=== PATIENT | female | born 1995 | race Caucasian/White ===

== ENCOUNTER 2018-08-30 13:13 | Outpatient (CLI) | payer OTHER ==
--- NOTE | 2018-08-30 13:42 | Ultrasound Report ---
Reason: ENCTR FOR TEST, RESULT POSITIVE Procedure Date: 08/30/2018 Accession Number: [id number] / [id number] Procedure: US - OB First Trimester CPT Code: FULL RESULT: EXAM: FIRST TRIMESTER OBSTETRIC ULTRASOUND (Less than 11 weeks) EXAM DATE: 08/30/2018 12:50 PM. CLINICAL HISTORY: Encounter for test, result positive. LMP: 07/04/2018. COMPARISONS: None. TECHNIQUE: Transabdominal and transvaginal ultrasound examination with static image documentation. CLINICAL DATES: EGA 8 weeks 1 day with TARAH 04/10/2019 based on last menstrual period. ASSESSMENT: Gestational Sac: Single intrauterine. Mean gestational sac diameter: 39 mm = 9 weeks 0 days. Embryo: CRL (crown-rump length) 19.5 mm = 8 weeks 2 days. Cardiac activity: 170 beats per minute. Yolk sac: 2.3 mm. Amniotic fluid: Not accurately assessed at this gestational age. Early placenta: Not visible at this gestational age. Other: No perigestational fluid collection demonstrated. MATERNAL STRUCTURES: Uterus: Retroverted. Unremarkable. Cervix: Closed. Right Ovary/Adnexa: The ovary measures 2.8 x 1.8 x 1.6 cm, volume 4.2 cc. Unremarkable. Left Ovary/Adnexa: The ovary measures 3.0 x 2.0 x 2.3 cm, volume 7.2 cc. Contains the corpus luteum. Free Fluid: None. Other: None. IMPRESSION: 1. Single viable intrauterine at EGA 8 weeks 2 days with TARAH 04/09/2019 based on crown-rump length, which is concordant with clinical dates. 2. Assigned dating is TARAH 04/09/2019 based on current ultrasound. RADIA
== END 2018-08-30 13:14 | disposition home or self-care (01) ==
LOC: DI 13:13
PROVIDERS: ATTEND Registered Nurse
DX: Z32.01 Encounter for pregnancy test, result positive (principal)
CPT/HCPCS: 76801; 76817

== ENCOUNTER 2018-10-07 08:09 | Outpatient (CLI) | payer OTHER ==
[2018-10-07 09:23] LABS: BILIRUBIN,URINE NEGATIVE (NEGATIVE); GLUCOSE, URINE (UA) NEGATIVE (NEGATIVE); KETONES,URINE (UA) NEGATIVE (NEGATIVE); LEUKOCYTE ESTERASE, URINE NEGATIVE (NEGATIVE); NITRITE,URINE NEGATIVE (NEGATIVE); OCCULT BLOOD,URINE NEGATIVE (NEGATIVE); PH,URINE 7.5 PH (5.0-7.5); PROTEIN,URINE NEGATIVE (NEGATIVE); UROBILINOGEN,URINE 0.2 (NORMAL) E.U./dL (NORMAL)
[2018-10-07 09:24] LABS: CLARITY,URINE CLEAR (CLEAR)
[2018-10-07 09:30] LABS: BASOPHILS % (AUTO) 0.2 %; EOSINOPHILS # (AUTO) 0.1 10^3/uL (0.0-0.7); EOSINOPHILS % (AUTO) 0.9 %; HGB - HEMOGLOBIN 12.4 g/dL (12.0-16.0); LYMPHOCYTES # (AUTO) 1.6 10^3/uL (1.5-3.5); MEAN CORPUSCULAR HEMOGLOBIN 33.4 pg (27.0-31.0); MEAN CORPUSCULAR VOLUME 95.3 fL (81.0-99.0); MEAN PLATELET VOLUME 8.8 fL (7.9-10.8); MONOCYTES # (AUTO) 0.5 10^3/uL (0.0-1.0); MONOCYTES % (AUTO) 6.7 %; NEUTROPHILS # (AUTO) 4.7 10^3/uL (1.5-6.6); NEUTROPHILS % (AUTO) 69.2 %; PLT - PLATELET COUNT 262 10^3/uL (130-450); RED CELL DISTRIBUTION WIDTH 12.8 % (12.0-15.0); WHITE BLOOD COUNT 6.8 x10^3/uL (4.8-10.8)
[2018-10-07 09:59] LABS: BACTERIA,URINE None Seen /HPF (None Seen); RBC,URINE None Seen /HPF (0-5); SQUAMOUS EPITHELIAL CELL,UR RARE Squamous (<= Few)
[2018-10-08 12:11] LABS: HEPATITIS B SURFACE ANTIGEN NON-REACTIVE (NON-REACTIVE); HEPATITIS C ANTIBODY NON-REACTIVE (NON-REACTIVE)
[2018-10-08 14:21] LABS: HIV AG/AB 4TH GEN NON-REACTIVE (NON-REACTIVE)
== END 2018-10-07 08:10 | disposition home or self-care (01) ==
LOC: LAB 08:09
PROVIDERS: ATTEND Obstetrics & Gynecology
DX: Z36.9 Encounter for antenatal screening, unspecified (principal)
CPT/HCPCS: 36415; 81001; 81599; 85025; 86592; 86762; 86803; 86850; 86900; 86901; 87340; 87389

== ENCOUNTER 2018-12-06 07:25 | Outpatient (CLI) | payer OTHER ==
--- NOTE | 2018-12-06 10:24 | Ultrasound Report ---
Reason: ENCOUNTER FOR SCREENING, UNSPECIFIED Procedure Date: 12/06/2018 Accession Number: [id number] / [id number] Procedure: US - OB Detailed Eval CPT Code: FULL RESULT: EXAM: COMPLETE OBSTETRICAL ULTRASOUND EXAM DATE: 12/06/2018 09:37 AM. CLINICAL HISTORY: anatomic survey. COMPARISON: None. TECHNIQUE: Real-time sonographic evaluation of the fetus performed by the dowel inserting machine operator. Multiple enrollment eligibility representative static images were saved for review. DATING: Established EGA 22 weeks 1 day with TARAH 04/10/2019 based on last menstrual period/obstetric physician. EGA 22 weeks 2 days with TARAH 04/09/2019 based on initial ultrasound. EGA 23 weeks 1 day with TARAH 04/03/2019 based on the current ultrasound. GENERAL EVALUATION Ro . Cardiac activity: 148 bpm. movement: Visualized. Presentation: Cephalic. Placenta: Anterior position. No evidence for previa. Umbilical cord: 3 vessel cord. Central placental cord origin. Amniotic fluid: MARLON 13.2 MVP 4.0 cm. BIOMETRY Bi-Parietal Diameter (BPD): 5.6 cm, 23 weeks 0 days Head Circumference (HC): 20.8 cm, 22 weeks 6 days Abdominal Circumference (AC): 19.5 cm, 24 weeks 1 day Femur Length (FL): 3.9 cm, 22 weeks 4 days Estimated Weight: 592 g, 94th percentile for 22 weeks 1 day. ANATOMY The intracranial structures, profile, face/nose/lips, spine, 4 chamber heart and outflow tracts, stomach, abdominal wall and cord insertion, diaphragm, kidneys, bladder, and extremities were visualized and demonstrate no abnormality. MATERNAL STRUCTURES Uterus: Unremarkable. Cervix: Long and closed. Transabdominal length 4.1 cm. Right ovary/adnexa: Unremarkable. Left ovary/adnexa: Unremarkable. Free fluid: None. IMPRESSION: 1. Ro live intrauterine with gestational age 22 weeks 1 day based on last menstrual period. 2. Estimated weight is within expected limits for assigned dating, top normal. 3. Normal anatomic survey. No anatomic abnormalities are detected at this time. RADIA
== END 2018-12-06 07:26 | disposition home or self-care (01) ==
LOC: DI 07:25
PROVIDERS: ATTEND Obstetrics & Gynecology
DX: Z36.9 Encounter for antenatal screening, unspecified (principal); Z3A.22 22 weeks gestation of pregnancy
CPT/HCPCS: 76811

== ENCOUNTER 2019-01-13 14:31 | Outpatient (CLI) | payer OTHER ==
[2019-01-13 19:53] LABS: BASOPHILS % (AUTO) 0.2 %; EOSINOPHILS # (AUTO) 0.1 10^3/uL (0.0-0.7); EOSINOPHILS % (AUTO) 0.8 %; HGB - HEMOGLOBIN 11.5 g/dL (12.0-16.0); LYMPHOCYTES # (AUTO) 1.6 10^3/uL (1.5-3.5); LYMPHOCYTES % (AUTO) 20.5 %; MEAN CORPUSCULAR HEMOGLOBIN 34.1 pg (27.0-31.0); MEAN CORPUSCULAR HGB CONC 34.3 g/dL (32.0-36.0); MEAN CORPUSCULAR VOLUME 99.4 fL (81.0-99.0); MEAN PLATELET VOLUME 10.2 fL (7.9-10.8); MONOCYTES # (AUTO) 0.5 10^3/uL (0.0-1.0); NEUTROPHILS # (AUTO) 5.7 10^3/uL (1.5-6.6); NEUTROPHILS % (AUTO) 72.5 %; PLT - PLATELET COUNT 250 10^3/uL (130-450); RED BLOOD COUNT 3.37 10^6/uL (4.20-5.40); WHITE BLOOD COUNT 7.9 x10^3/uL (4.8-10.8)
== END 2019-01-13 23:59 | disposition home or self-care (01) ==
LOC: LAB.N 14:31
PROVIDERS: ATTEND Obstetrics & Gynecology
DX: Z34.80 Encounter for supervision of other normal pregnancy, unspecified trimester (principal)
CPT/HCPCS: 36415; 82950; 85025; 86850

== ENCOUNTER 2019-03-15 08:00 | Outpatient (CLI) | payer OTHER | END 2019-03-15 23:59 | disposition home or self-care (01) | LOC: LAB.R 08:00 | PROVIDERS: ATTEND Registered Nurse | DX: Z34.80 Encounter for supervision of other normal pregnancy, unspecified trimester (principal) | CPT/HCPCS: 87491; 87591; 87797 ==

== ENCOUNTER 2019-04-02 22:40 | Outpatient (CLI) | payer OTHER ==
[2019-04-02 23:33] VITALS: BP 112/68
--- NOTE | 2019-04-03 16:56 | PROCEDURE REPORT ---
- HPI Diagnosis/Indication for NST: Other (threatened labor @ term) Current EDU 04/10/19 Gestation 38 Weeks and 6 Days 2 Para 1 Vital Signs Temperature 37.2 C 04/02/19 23:16 Heart Rate 85 04/02/19 23:16 Respiratory Rate 112 H 04/02/19 23:16 Blood Pressure 112/68 04/02/19 23:16 Temperature 37.2 C 04/02/19 23:16 Heart Rate 85 04/02/19 23:16 Respiratory Rate 112 H 04/02/19 23:16 Blood Pressure 112/68 04/02/19 23:16 O2 Saturation - NST Procedure conducted per protocol; FHTs BL 145bpm, +accels, no decels, mod michael; FHTs cat I; TOCO: UCs q 2-7 minutes, palp mild; SVE unchanged per RN over a period of 2 goyo rs - Results and Plan Findings/Impression: Cat I FHTs No s/sx labor, SVE unchanged Adequate pain control Plan: d/c home w/ warning s/sx, labor s/sx, [facility] RTC PRN, has emergency contact information Keep RTPN as scheduled
== END 2019-04-03 01:37 | disposition home or self-care (01) ==
LOC: WFO 22:40 → FBP 22:43 → WFO 04-03 01:37
PROVIDERS: ATTEND Registered Nurse
DX: O47.1 False labor at or after 37 completed weeks of gestation (principal); Z3A.38 38 weeks gestation of pregnancy
CPT/HCPCS: 99213

== ENCOUNTER 2019-04-06 17:23 | Inpatient (IN) | payer OTHER ==
[2019-04-06] MEDS ORDERED: SODIUM CHLORIDE FLUSH 0.9% 10 ML SYRINGE IVP PRN (18:42)
[2019-04-06] MEDS ORDERED: ONDANSETRON 4 MG/2 ML VIAL IVP PRN (18:42)
[2019-04-06] MEDS ORDERED: SODIUM CHLORIDE FLUSH 0.9% 10 ML SYRINGE ONE (18:51)
--- NOTE | 2019-04-06 18:51 | HISTORY & PHYSICAL EXAMINATION ---
Admit History - Visit Reason Visit Reason: Contractions - : 2 Parity: 1 Premature: 0 Ectopic: 0 : 0 Care: positive: [facility] Risk/History: positive: None Complications This : positive: None Smoking Status: Never smoker - Mother's Labs Mother's Blood Type: positive: A Mother's RH: positive: Positive GBS: positive: Group B Step Negative Rubella Status: positive: Immune Review of Systems - Constitutional Constitutional: denies: Fatigue, Fever, Chills - Eyes Eyes: denies: Blurred vision, Spots in vision, Dipolpia - Cardiovascular Cariovascular: denies: Chest pain, Edema - Respiratory Respiratory: denies: Wheezing, SOB at rest - Gastrointestinal Gastrointestinal: denies: Constipation, Diarrhea, Nausea, Vomiting - Integumentary Integumentary: denies: Rash, Pruritis - Neurological Neurological: denies: Headache - Psychiatric Psychiatric: denies: Depression, Anxiety Physical - Abdominal Exam Vital Signs: Temp Pulse Resp BP Pulse Ox 37.0 C 84 18 122/77 99 04/06/19 17:32 04/06/19 17:32 04/06/19 17:32 04/06/19 17:32 04/06/19 17:32 - Monitoring Strip Review: positive: Category I - Presentation Presentation: positive: Vertex - Vaginal Exam Membranes: positive: Membranes intact Dilation (in cm): 5 Effacement (%): 80 Station: positive: -1 Cervical Position: positive: Midposition - Speculum Exam Speculum Exam Performed: positive: No Findings: positive: Other Plan for Labor - Plan For Labor I expect patient to be DC'd or transferred within 96 hours.: Yes Plan for Labor: HPI: This 23yo @ 39.3wks gestation by LMP c/w 8.2wk U/S. She presents to [facility] with c/o contractions every 4-6 minutes since 1400 this afternoon. She denies VB or Lof. She reports +FM. She had a preciptious labor with her first baby. SVE 5/80/-2, midposition, vertex with intact, bulging amniotic fluid membranes. She was admitted to [facility] for expectant management. Dating criteria: LMP 07/04/2019 Initial ultrasound at 8.3wks - agrees Serial Exams: agree PMHx: Anxiety OBHx: G1: 41wk 8lb3oz. unmedicated delivery. 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 Never smoker. Medications PNV Allergies: NKDA Family Hx: Breast cancer- mom, MGM; Ovarian cancer - aunt; All have BRCA 1. All had hysterectomies and mastectomies. 11/08/2019 pap, GC/CT neg 10/07/2018 labs: WBC 6.8; H/H 12.4/35.3, PLT 262 UA neg Rubella immune Hep B NR Hep C NR HIV NR RPR NR Rubella immune 1 hour GTT 109 Blood type A pos, antibody neg GBS negative Ultrasounds: 12/03/2018 FAS WNL with exception of incomplete visualization of facial structures and spine. Anterior placenta, no previa. Size c/w dates. 12/06/2018 completion FAS WNL. Physical Exam: Normocephalic, atraumatic PERRLA Heart RRR w/o M/G/R Lungs CTAB Abdomen gravid, soft, nontender SVE 5/80/-2, vertex Bulging BOW intact Bilateral Le's no edema Mood is good Assessment: 23yo @ 39.3wks gestation by L=8.3wk U/S Early labor FHR Category I GBS negative Plan: Admit to [facility] for expectant management If contractions decrease in frequency will AROM Anticipate spontaneous vaginal delivery Reviewed plan of care with patient, family, and labor RN who are all in agreement and deny questions or concerns at this time
[2019-04-06 19:57] LABS: BASOPHILS % (AUTO) 0.2 %; EOSINOPHILS % (AUTO) 0.2 %; HGB - HEMOGLOBIN 11.3 g/dL (12.0-16.0); LYMPHOCYTES % (AUTO) 14.6 %; MEAN CORPUSCULAR HEMOGLOBIN 32.6 pg (27.0-31.0); MEAN CORPUSCULAR HGB CONC 34.2 g/dL (32.0-36.0); MEAN CORPUSCULAR VOLUME 95.3 fL (81.0-99.0); MEAN PLATELET VOLUME 9.4 fL (7.9-10.8); MONOCYTES # (AUTO) 0.9 10^3/uL (0.0-1.0); MONOCYTES % (AUTO) 6.6 %; NEUTROPHILS # (AUTO) 10.9 10^3/uL (1.5-6.6); NEUTROPHILS % (AUTO) 78.4 %; PLT - PLATELET COUNT 266 10^3/uL (130-450); RED BLOOD COUNT 3.47 10^6/uL (4.20-5.40); RED CELL DISTRIBUTION WIDTH 13.8 % (12.0-15.0); WHITE BLOOD COUNT 13.9 x10^3/uL (4.8-10.8)
--- NOTE | 2019-04-06 21:41 | PROVIDER PROGRESS NOTE ---
Labor Progress Note - Uterine Monitoring Uterine Monitoring Mode: positive: External toco Contraction Frequency (min/apart): 2-5 Contraction Intensity: positive: Strong Uterine Resting Tone: positive: Soft - Monitoring Monitor Mode: positive: External ultrasound Heart Rate Baseline: 120 Heart Rate Variability: positive: Moderate (6-25 bmp) Accelerations: positive: Present, 15x15 Decelerations: positive: None Strip Review: positive: Category I - Vaginal Exam Dilation (in cm): 5-6 Effacement (%): 80 Station: -1 Cervical Position: Midposition - Labor Progress Note Labor Progress Note/Additional Text: S: Patient sitting up on exercise ball and reports she is feeling increased cont ractions intensity. Family supportive at the bedside. O: FHR baseline 120, moderate variability, + accels, no decels Contractions palpate strong every 2-4 minutes with soft resting tone. SVE 6/80/-1, vertex, midposition, soft BOW intact A: 23yo @ 39 Active labor GBS neg FHR Category I P: Intermittent auscultation Continue expectant management AROM with next SVE Repeat SVE in 4 hours or sooner PRN. Anticipate spontaneous vaginal delivery. Pt verbalized understanding and agrees to above plan. She denies further questions or concerns at this time.
--- NOTE | 2019-04-07 01:32 | PROVIDER PROGRESS NOTE ---
Labor Progress Note - Uterine Monitoring Uterine Monitoring Mode: positive: External toco Contraction Frequency (min/apart): 2-4 Contraction Intensity: positive: Strong Uterine Resting Tone: positive: Soft - Monitoring Monitor Mode: positive: External ultrasound Heart Rate Baseline: 150 Heart Rate Variability: positive: Moderate (6-25 bmp) Accelerations: positive: Present, 15x15 Decelerations: positive: Early, Variable, Intermittent (<50% x20 min) Strip Review: positive: Category I - Vaginal Exam Dilation (in cm): 7 Effacement (%): 90 Station: -1 Cervical Position: Midposition - Labor Progress Note Labor Progress Note/Additional Text: S: Patient reports feeling "waves of pushing" during contractions. Breathing through contractions well. Family supportive at the bedside. O: SVE 7/90/-1, vertex. AROM large amount of clear fluid. FHR baseline 150s, moderate variability, + accels, difficulty to assess type of decelerations secondary to uterine tocometry needing to be adjusted. Likely variable deceleration Contractions palpate strong every 2-4 minutes with soft resting tone. A: 23yo @ 39.4wks gestation Active labor AROM GBS neg FHR Category I P: Intermittent monitoring Continue expectant management Anticipate spontaneous vaginal delivery
[2019-04-07] MEDS: SODIUM CHLORIDE FLUSH 0.9% 10 ML SYRINGE IVP SCH ×3 (01:48→12:45)
[2019-04-07] MEDS ORDERED: OXYTOCIN/SODIUM CHLORIDE 500 ML IV ONE (01:49)
[2019-04-07] MEDS ORDERED: HYDROCORTISONE 1% CREAM 28 GM TUBE PR PRN (03:42)
[2019-04-07] MEDS ORDERED: WITCH HAZEL/GLYCERIN 1 EACH MED..PAD TOP PRN (03:42)
[2019-04-07] MEDS ORDERED: OXYTOCIN/SODIUM CHLORIDE 500 ML IV PRN (03:43)
--- NOTE | 2019-04-07 03:59 | DELIVERY NOTE ---
Delivery Note - Labor Labor: positive: Augmented by ARM - Infant Delivery Method Delivery Method: positive: Spontaneous vaginal delivery - Presentation Presentation: positive: Vertex, EMY - left occiput anterior - Nuchal Cord Nuchal Cord: positive: None - Amniotic Fluid Description Amniotic Fluid Description: positive: Clear - Episiotomy Type Episiotomy Type: positive: None - Laceration Laceration: positive: 1st degree, Perineal - Delivery Outcome Delivery Outcome: positive: Livebirth - : positive: Placed in direct skin contact with mother, Bulb syringe, Stimulated, Warmed, [place] used [place] sex: positive: Female - Cord Cord: positive: 3 vessels - Placenta Placenta: positive: Intact, Spontaneous - Estimated Blood Loss Estimated Blood Loss (in cc): 150 - Post Delivery Events Post Delivery Events: positive: No post delivery events - Delivery Comments (Free Text/Narrative) Delivery Comments (Free Text/Narrative): This 23yo @ 39.4wks gestation presented to [facility] on 04/06/2019 at 1729 with complaints of contractions. Cervix was 5/80/-2, vertex with intact membranes. FHR pattern demonstrated Category I tracing throughout labor. Normal labor course. AROM occurred at 0717 and was noted to be a large amount of clear fluid. Patient progressed to c/c/+1 with spontaneous urge to push at 0320. Normal of viable female infant at 0329 on 04/07/2019. No nuchal cord. 's 8/9 at 1 and 5 min respectively. [place] placed on maternal abdomen, stimulated, dried, and placed skin to skin. Pitocin administered via IV for hemostasis. The umbilical cord was allowed to stop pulsating at which time it was doubly clamped by CNM and cut by FOB. Cord blood was obtained. 3VC. Placenta delivered spontaneously and intact at 0335. Uterine fundus firm and there is no excessive bleeding. The perineum, vagina, and cervix were inspected and found to have superficial first degree perineal laceration which was hemostatic and did not require repair. Tissues well approximated. initiated. Family bonding well. Both mother and were left in stable condition.
[2019-04-07] MEDS: IBUPROFEN 800 MG TABLET PO SCH ×4 (04:14→23:30)
[2019-04-07] MEDS: ACETAMINOPHEN 500 MG TABLET PO SCH ×3 (04:15→20:36)
[2019-04-07] MEDS: DOCUSATE SODIUM 100 MG CAPSULE PO SCH ×2 (09:35→20:36)
[2019-04-07] MEDS: LACTATED RINGERS 1,000 ML IV SCH ×3 (09:36→12:45)
[2019-04-08] MEDS: ACETAMINOPHEN 500 MG TABLET PO SCH (04:17)
[2019-04-08] MEDS: IBUPROFEN 800 MG TABLET PO SCH (05:45)
--- NOTE | 2019-04-08 06:55 | Discharge Plan ---
Discharge Plan Disposition: 01 Home, Self Care Condition: Good Diet: Regular Activity Restrictions: No Restrictions Shower Restrictions: No Driving Restrictions: No Weight Bearing: Full Weight No Smoking: If you smoke, Please STOP! Call for help. Follow-up with: Anastasia Hall CNM, ARNP [Provider Admit Priv/Credential] -
--- NOTE | 2019-04-08 07:01 | PROVIDER PROGRESS NOTE ---
Subjective - Subjective Subjective: FINAL PROGRESS NOTE: S: Bonding well with baby. without difficulty. Pain well controlled with oral medications. Bleeding decreased and is light. Desires to go home today as soon as possible. O: BP 114/59, T 36.8, HR 74, RR 16 Heart RRR w/o M/G/R, lungs CTAB, abdomen soft and nontender with fundus firm at U-2. Bilateral LE's trace edema. Perineum intact. A: 23yo -->P2 PPD#1 s/p TSVD P: Discharge home today on PPD#1. Reviewed warning s/sx and when to present. Advised continuation of PNV while and PRN ibuprofen and tylenol for pain management. Plan f/u in 1 week for support visit PRN and follow up in 3 weeks for routine visit. Pt verbalized understanding and agrees to above plan. She denies further questions or concerns at this time. Objective - Vital Signs/Intake & Output Vital Signs: Vital Signs x48h Temp Pulse Resp BP Pulse Ox 04/08/19 04:12 36.8 C 74 16 114/59 L 100 04/07/19 23:32 36.6 C 67 14 111/52 L 99 Intake & Output: Intake & Output 04/05/19 04/06/19 04/07/19 04/08/19 23:59 23:59 23:59 23:59 Intake Total 360 Output Total 1000 Balance -640 - Lab Results Fish Bones: 04/06/19 19:15
--- NOTE | 2019-04-08 08:18 | DISCHARGE SUMMARY ---
Physician: SARTHAK Guillen DATE OF ADMISSION: 04/06/2019 DATE OF DISCHARGE: 04/08/2019 DIAGNOSES ON ADMISSION 1. A 23-year-old G2, P1-0-0-1 at 39 weeks' gestation. 2. Early labor. 3. Group B Streptococcus negative. DIAGNOSES ON DISCHARGE 1. A 23-year-old G2, P2-0-0-2, status post spontaneous vaginal delivery on 04/07/2019. 2. Normal recovery. 3. . HISTORY OF PRESENT ILLNESS: She is a patient of [facility] who presented on 019 with complaints of contractions. Cervix was 5, 80, -2, in a vertex position with intact membrane s. AROM occurred at 0717 hours, was noted to be a large amount of clear fluid. The patient progress ed to spontaneously deliver a viable female infant at 0329 hours on 04/07/2019. Apgars 8 and 9 at on e and five minutes respectively. EBL 150 mL. The perineum, vagina and cervix were inspected and fou nd to have superficial first-degree perineal laceration, which was hemostatic, and did not require re pair. HOSPITAL COURSE: She has been doing well in her course. She is ambulating and tolerating a regular diet. She is urinating without difficulty, and her lochia is normal. Her pain is well co ntrolled with oral medications. She will be discharged home today on day #1 with instruct ions to continue her vitamins while , and to take [id number] ibuprofen an d Tylenol for pain management as needed. She intends to followup with myself at [facility] in 1 week for support visit, and in 3 weeks for routine visit. She has been given precautions to call if she has any worsening fevers, chills, abdominal pain, increased ble eding or foul-smelling vaginal lochia. TD: 04/08/2019 07:06
[2019-04-08] MEDS: DOCUSATE SODIUM 100 MG CAPSULE PO SCH (09:06)
[2019-04-08 13:11] VITALS: BP 108/66
--- NOTE | 2019-04-08 14:02 | Labor Flowsheet ---
Labor Flowsheet Datetime Report Generated by CPN: 04/08/2019 14:02 Datetime: 04/08/2019 12:57 VITAL SIGNS NBP Sys/Tanvi/Mean (mmHg): 108 : 66 : 77 Pulse: 82 LaborFlag: Labor Datetime: 04/07/2019 06:55 SpO2 (%): 99 Datetime: 04/07/2019 03:20 VAGINAL EXAM Dilatation (cm): 10.0 Effacement (%): 100 Exam by: A.Isabel PATIENT CARE Patient Position/Activity: Semi-Fowlers STAGE 2 Pushing: Coached on Pushing Pushing Position: Pushing with Contractions; Pushing Lithotomy; Pushing Squatting Pushing Progress: Descent with Pushing Datetime: 04/07/2019 03:09 UTERINE ACTIVITY Monitor Mode: External Frequency (min): 1.5-2.5 Quality: Strong Duration (sec): 70-90 Resting Tone (Palpate): Relaxed Comments: poor tracing d/t maternal thrashing Datetime: 04/07/2019 03:01 Pattern: Normal: <= 5 Contractions in 10 Minutes ASSESSMENT A Monitor Mode: External US FHR Baseline Rate : 130 Variability: Moderate 6-25 bpm Accelerations: 15X15 Decelerations: None Category: Category I COMMUNICATION Communication: Provider at Bedside Provider Notified (Name): A.Isabel Communication Comments: Received verbal orders to do dop tones; difficult to continuously monitor d /t maternal thrashing Datetime: 04/07/2019 03:00 TEACHING Instructional Method: Verbal Plan of Care: Plan of Care Discussed Labor/Induction: Pushing Methods Datetime: 04/07/2019 02:54 Stage 2 Comments: pt encouraged by provider to stop pushing as pt is actually not fully dilated yet Datetime: 04/07/2019 02:30 PAIN Pain Scale: 10 Pain Presence: Intermittent Pain Type: Contraction Pain Location: Abdomen Pain Relief Measures: Comfort Measures Pain Coping: Talking Through Contractions; Breathing Through Contractions; Declines Medication or E pidural Datetime: 04/07/2019 02:21 Monitor Interventions for FHR: Ultrasound Adjusted Datetime: 04/07/2019 02:10 Respirations: 16 Temperature (C): 37.0 Datetime: 04/07/2019 01:29 I/O Interventions: Up to BR Datetime: 04/07/2019 01:15 Membrane Status: Ruptured Membranes Rupture Method: Artificial Amniotic Fluid Color: Clear Amniotic Fluid Amount: Large Datetime: 04/07/2019 01:00 Monitor Interventions for UA: [place] Adjusted Datetime: 04/07/2019 00:15 Contraction Comments: poor tracing Datetime: 04/07/2019 00:00 ASSESSMENT B Monitor Mode: Doppler FHR Baseline Rate : 120 Datetime: 04/06/2019 22:04 Pain Management: Pain Scale/Goals; Comfort Measures Datetime: 04/06/2019 21:36 Station: -1 Datetime: 04/06/2019 20:00 MATERNAL ASSESSMENT Level of Consciousness: Fully Conscious Breath Sounds, Left: Clear and Equal Breath Sounds, Right: Clear and Equal Nausea/Vomiting: Denies Datetime: 04/06/2019 19:30 Stage of : Labor Unit Routine: Unit Personnel
== END 2019-04-08 13:50 | disposition home or self-care (01) | DRG 807 ==
LOC: WFO 17:23 → FBP 17:25 → WFO 18:41 → FBP 18:42
PROVIDERS: ADMIT Nurse Practitioner Obstetrics & Gynecology; ATTEND Nurse Practitioner Obstetrics & Gynecology
PROC: 10E0XZZ Delivery of Products of Conception, External Approach (ICD-10-PCS; principal; 2019-04-07)
PROC: 10907ZC Drainage of Amniotic Fluid, Therapeutic from Products of Conception, Via Natural or Artificial Opening (ICD-10-PCS; 2019-04-07)
DX: O70.0 First degree perineal laceration during delivery (principal); Z37.0 Single live birth; Z3A.39 39 weeks gestation of pregnancy
CPT/HCPCS: 36415; 85025; A9270